=== PATIENT | male | born 1955 | race Caucasian/White ===

== ENCOUNTER 2016-10-12 15:46 | Emergency (ER) | payer MEDICAID, OTHER ==
[2016-10-12 16:01] VITALS: RESP 16; O2SAT 100
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
[2016-10-12] MEDS ORDERED: CEPHALEXIN 500 MG CAP PO ONE (17:23)
[2016-10-12 18:10] VITALS: BP 150/91; PULSE 95; TEMP 99
== END 2016-10-12 18:10 | disposition home or self-care (01) ==
LOC: EDUNIT#
PROC: 0HQ0XZZ Repair Scalp Skin, External Approach (ICD-10-PCS; principal; 2016-10-12)
DX: S01.01XA Laceration without foreign body of scalp, initial encounter (principal); X99.8XXA Assault by other sharp object, initial encounter